=== PATIENT | male | born 1955 | race African-American/Black ===

== ENCOUNTER 2016-05-13 20:52 | Emergency (ER) | payer MEDICARE ==
--- NOTE | ~2016-05-13 | EKG ---
PATIENT: MUNIR LÓPEZ UNIT #: [id number] Ventricular Rate: 70 BPM Atrial Rate: 70 BPM P-R Interval: 128 ms QRS Duration: 144 ms Q-T Interval: 414 ms QTC Calculation(Bezet): 447 ms P [place]: 59 degrees Calculated R [place]: 92 degrees Calculated T [place]: 58 degrees Diagnosis Line: Normal sinus rhythm Diagnosis Line: Right bundle branch block with repolarization Diagnosis Line: abnormality Diagnosis Line: Abnormal ECG Diagnosis Line: Diagnosis Line: Confirmed by ADRIANNE CRUM MD ([id number]) on 05/16/2016 Diagnosis Line: 7:24:01 AM INTERPRETING MD: SKYLA MENDOZA
[2016-05-13 19:32] LABS: BASOPHIL% 0.4 % (0-2.5); DIFF IND NO; EOSINOPHIL# 0.1 X10e3 (0-0.7); EOSINOPHIL% 1.6 % (0.0-7.0); HEMATOCRIT 44.9 % (38.0-50.0); HEMOGLOBIN 15.5 gm/dL (13.0-16.0); LYMPHOCYTE# 4.2 X10e3 (1.0-3.5); LYMPHOCYTE% 49.8 % (17.0-45.0); MEAN CELL VOLUME 87.7 FL (83-96); MEAN CORPUSCULAR HEMOGLOBIN 30.3 PG (28-34); MEAN CORPUSCULAR HGB CONC 34.6 g/dL (30-36); MEAN PLATELET VOLUME 9.9 FL (6.5-11.5); MONOCYTE# 0.6 X10e3 (0-1.0); MONOCYTE% 6.6 % (3.0-12.0); NEUTROPHIL# 3.5 X10e3 (1.5-7.1); NEUTROPHIL% 41.6 % (40-75); PLATELET COUNT 124 X10e3 (140-420); RED BLOOD COUNT 5.12 X10e (3.90-5.60); RED CELL DISTRIBUTION WIDTH 13.2 % (11.0-15.5); WHITE BLOOD COUNT 8.3 X10e3 (4.0-10.5)
[2016-05-13 19:47] LABS: BUN/CREATININE RATIO 15.55; CALCIUM SERUM 9.6 mg/dL (8.4-10.2); CREATININE SERUM 1.8 mg/dL (0.6-1.4); GLOM FILT RATE Estimated 50.1 mL/min (>60); POTASSIUM 4.1 mmol/L (3.5-5.1)
[~2016-05-13 20:52] MED LIST: AMLODIPINE BESY10 MG PO; ASPIRIN81 M2 PO; HYDRALAZINE HCL50 MG PO; LIPITOR40 MG PO; MULTI VITAMIN1 EACH PO; TOPROL XL PO
[2016-05-13 21:12] LABS: POC - CKMB 1.5 ng/mL (0.0-7.9); POC - TROPONIN <0.05 ng/mL (<=0.05)
== END 2016-05-13 23:35 | disposition home or self-care (01) ==
LOC: CED 20:52
PROVIDERS: Emergency Medicine
DX: E11.65 Type 2 diabetes mellitus with hyperglycemia (principal); R00.2 Palpitations; I10 Essential (primary) hypertension; F17.200 Nicotine dependence, unspecified, uncomplicated
CPT/HCPCS: 36415; 80048; 82553; 82947; 84443; 84484; 85025; 93005; 96361; 96374; 96375; 99284